=== PATIENT | female | born 1955 | race Caucasian/White ===

== ENCOUNTER 2017-04-24 18:54 | Inpatient (IN) | payer OTHER ==
[~2017-04-24] VITALS: Ht 170.2 cm; Wt 55.4 kg
[~2017-04-24 18:54] MED LIST: ALBU18HF INH; ASPI-496 PO; BACL-19 PO; BENZ1TAB61 PO; CARB15DR EACHEYE; CARV-39 PO; CEFD300C37 PO; CITA40TA12 PO; CLON0.2T PO; CYAN1TAB39 PO; DIAZ2TAB3 PO; ERGO500017 PO; FENO145T13 PO; FERR140T2 PO; FERR325T20 PO; FLUO40CA2 PO; HYDR-3138 PO; HYDR-3144 PO; LAMO100T PO; LEVO50TA5 PO; LEVO750T26 PO; LISI40TA PO; LORA10TA3 PO; LOSA1TAB17 PO; LOVA40TA2 PO; MELA3TAB PO; MELA3TAB37 PO; METF850T2 PO; NEOM14.27 TP; PANT40TA5 PO; PROC5TAB40 PO; RISP3TAB3 PO; SILV400C TP; TRIA10.8 INH; VENL150C PO; VENL75CA PO
[2017-04-24 19:26] LABS: HEMATOCRIT 32.4 % (34.6-47.8); HEMOGLOBIN 10.9 g/dL (11.7-16.4); WHITE BLOOD COUNT 16.5 x10^3/uL (3.4-10)
[2017-04-24] MEDS ORDERED: AZITHROMYCIN 500 MG in SODIUM CHLORIDE 0.9% 250 ML IVPB ONE (19:30)
[2017-04-24] MEDS ORDERED: ASPIRIN 81 MG TABLET CHEW PO ONE (19:30)
[2017-04-24] MEDS ORDERED: SODIUM CHLORIDE 0.9% 1,000ML IVBOLUS ONE (19:30)
[2017-04-24] MEDS ORDERED: CEFTRIAXONE PMX 1GM/50ML 50 ML IVPB ONE (19:30)
[2017-04-24 19:36] LABS: BLOOD UREA NITROGEN 12 mg/dL (7-18)
[2017-04-24 19:43] LABS: IS PT STATUS REG ER OR PRE ER? YES
[2017-04-24] MEDS ORDERED: CETI10TA18 PO (19:54)
[2017-04-24] MEDS ORDERED: LEVO75TA5 PO (19:54)
[2017-04-24] MEDS ORDERED: RISP3TAB3 PO (19:54)
[2017-04-24] MEDS ORDERED: CEFTRIAXONE PMX 1GM/50ML 50 ML ONE (20:10)
[2017-04-24] MEDS ORDERED: SODIUM CHLORIDE 0.9% 1,000 ML IV ONE (20:30)
[2017-04-24] MEDS ORDERED: FLUTICASONE NASAL SPRAY 16GM NAS SCH (20:30)
[2017-04-24] MEDS ORDERED: HYDROcodone/APAP 10/325 MG TABLET PO PRN (20:30)
[2017-04-24] MEDS ORDERED: SODIUM CHLORIDE 0.9% 1,000 ML IV SCH (20:35)
[2017-04-24] MEDS ORDERED: hydrALAzine 20 MG/ML, 1ML IVPush PRN (21:00)
[2017-04-24] MEDS ORDERED: BISACODYL 10 MG SUPP PR PRN (21:00)
[2017-04-24] MEDS: TEMPLATE NON-FORMULARY MED. (Carboxymethylcellulose Sodium (Refresh Tears) 1 DROP) EACHEYE SCH (21:00)
[2017-04-24] MEDS ORDERED: ONDANSETRON ODT 4 MG PO PRN (21:00)
[2017-04-24] MEDS ORDERED: RISPERIDONE 1 MG TABLET PO SCH (21:00)
[2017-04-24] MEDS ORDERED: ENOXAPARIN 40 MG/0.4 ML SQ SCH (21:00)
[2017-04-24] MEDS ORDERED: CEFTRIAXONE PMX 1GM/50ML 50 ML IV SCH (21:00)
[2017-04-24] MEDS ORDERED: GUAIFENESIN/DM 200-20MG, 10ML UDC PO PRN (21:00)
[2017-04-24] MEDS ORDERED: MELATONIN 3 MG TABLET PO SCH (21:00)
[2017-04-24] MEDS ORDERED: POLYETHYLENE GLYCOL 17 GM PACKET PO PRN (21:00)
[2017-04-24] MEDS ORDERED: DOCUSATE 100 MG CAPSULE PO PRN (21:00)
[2017-04-24] MEDS ORDERED: ACETAMINOPHEN 325 MG TABLET PO PRN (21:00)
[2017-04-24] MEDS ORDERED: LOVASTATIN 40 MG TABLET PO SCH (21:00)
[2017-04-24] MEDS ORDERED: GLUCAGON 1 MG IM PRN (21:30)
[2017-04-24] MEDS ORDERED: DEXTROSE 4 GM TAB.CHEW PO PRN (21:30)
[2017-04-24] MEDS ORDERED: DEXTROSE 50%, 50ML SYRINGE IVPush PRN (21:30)
[2017-04-24 22:24] VITALS: BP 188/92
[2017-04-24] MEDS: LAMOTRIGINE 100 MG TABLET PO SCH (22:35)
[2017-04-24] MEDS: BENZTROPINE 1 MG TABLET PO SCH (22:36)
[2017-04-24] MEDS: PANTOPROZOLE 40MG TABLET PO SCH (22:37)
[2017-04-24] MEDS: CARVEDILOL 25 MG TABLET PO SCH (22:37)
[2017-04-24] MEDS ORDERED: ALBUTEROL SULFATE 2.5 MG/3 ML NPPB PRN (23:00)
[2017-04-25 02:00] VITALS: BP 159/83
[2017-04-25 05:40] LABS: HEMOGLOBIN 10.6 g/dL (11.7-16.4); WHITE BLOOD COUNT 14.7 x10^3/uL (3.4-10)
[2017-04-25 06:05] LABS: BLOOD UREA NITROGEN 8 mg/dL (7-18)
[2017-04-25] MEDS: INSULIN ASPART 100 UNITS/ML, PEN SQ-INSULIN SCH ×3 (07:00→17:05)
[2017-04-25 07:16] VITALS: BP 194/79
[2017-04-25] MEDS ORDERED: metFORMIN 850 MG TABLET PO SCH (08:00)
[2017-04-25 08:49] VITALS: BP 160/79
[2017-04-25] MEDS: CARVEDILOL 25 MG TABLET PO SCH (08:53)
[2017-04-25] MEDS: BENZTROPINE 1 MG TABLET PO SCH (08:55)
[2017-04-25] MEDS: LAMOTRIGINE 100 MG TABLET PO SCH (08:56)
[2017-04-25] MEDS ORDERED: LEVOTHYROXINE 75 MCG TABLET PO SCH (09:00)
[2017-04-25] MEDS ORDERED: [UNRECOGNIZED DRUG - OTHER] PO SCH (09:00)
[2017-04-25] MEDS ORDERED: SODIUM CHLORIDE FLUSH 10ML SYR IVF SCH (09:00)
[2017-04-25] MEDS ORDERED: CETIRIZINE 10 MG TABLET PO SCH (09:00)
[2017-04-25] MEDS ORDERED: RISPERIDONE 1 MG TABLET PO SCH (09:00)
[2017-04-25] MEDS ORDERED: FOLIC ACID PO SCH (09:00)
[2017-04-25] MEDS ORDERED: FERROUS SULFATE 325 MG TABLET PO SCH (09:00)
[2017-04-25] MEDS ORDERED: FLUOXETINE 20 MG CAPSULE PO SCH (09:00)
[2017-04-25] MEDS: TEMPLATE NON-FORMULARY MED. (Carboxymethylcellulose Sodium (Refresh Tears) 1 DROP) EACHEYE SCH (09:00)
[2017-04-25] MEDS ORDERED: TEMPLATE NON-FORMULARY MED. (Losartan/Hydrochlorothiazide** (Losartan-Hctz 100-25 Mg Tab PO SCH (09:00)
[2017-04-25] MEDS ORDERED: AZITHROMYCIN 250 MG TABLET PO SCH (09:00)
[2017-04-25] MEDS ORDERED: CYANOCOBALAMIN PO SCH (09:00)
[2017-04-25] MEDS ORDERED: ERGOCALCIFEROL 50,000 UNIT CAPSULE PO SCH (09:00)
[2017-04-25] MEDS: PANTOPROZOLE 40MG TABLET PO SCH (09:05)
[2017-04-25] MEDS ORDERED: OMNIPAQUE 350 MG/ML, 75ML BOTTLE ONE (12:28)
[2017-04-25 14:20] VITALS: BP 151/78
== END 2017-04-25 19:04 | disposition home or self-care (01) | DRG 190 ==
LOC: ED 20:00 → EDIP 20:08 → ED 20:37 → 4WST 21:30
PROVIDERS: ADMIT Family Medicine; ATTEND Family Medicine
DX: J44.0 Chronic obstructive pulmonary disease with (acute) lower respiratory infection (principal); J15.9 Unspecified bacterial pneumonia; J84.10 Pulmonary fibrosis, unspecified; E87.1 Hypo-osmolality and hyponatremia; F20.0 Paranoid schizophrenia; I10 Essential (primary) hypertension; E03.9 Hypothyroidism, unspecified; E11.9 Type 2 diabetes mellitus without complications; E78.5 Hyperlipidemia, unspecified; F41.1 Generalized anxiety disorder; G89.29 Other chronic pain; K21.9 Gastro-esophageal reflux disease without esophagitis; R09.02 Hypoxemia; F41.9 Anxiety disorder, unspecified; Z72.0 Tobacco use; Z80.3 Family history of malignant neoplasm of breast; Z86.73 Personal history of transient ischemic attack (TIA), and cerebral infarction without residual deficits; Z90.49 Acquired absence of other specified parts of digestive tract; Z90.710 Acquired absence of both cervix and uterus; Z88.8 Allergy status to other drugs, medicaments and biological substances; Z88.0 Allergy status to penicillin; Z86.711 Personal history of pulmonary embolism; Z99.81 Dependence on supplemental oxygen; Z86.718 Personal history of other venous thrombosis and embolism; Z79.01 Long term (current) use of anticoagulants; Z88.6 Allergy status to analgesic agent; Z88.1 Allergy status to other antibiotic agents
CPT/HCPCS: 36415; 71010; 71260; 80048; 82040; 82962; 83605; 84145; 84484; 85025; 87040; 93005; 96365; 96367; J0456; J0696; J1650; J1815; Q9967; J7030; J7050

== ENCOUNTER 2017-08-07 07:57 | Inpatient (IN) | payer OTHER ==
[~2017-08-07] VITALS: Ht 170.2 cm; Wt 54.3 kg
[~2017-08-07 07:57] MED LIST changes: +CETI10TA18 PO; +FERR325T18 PO; -FERR325T20 PO; -HYDR-3138 PO; -HYDR-3144 PO; +HYDR-3237 PO; +HYDR-3245 PO; +LEVO75TA5 PO; -LOSA1TAB17 PO; +LOSA1TAB22 PO; -MELA3TAB PO; +MELA3TAB2 PO; -MELA3TAB37 PO; +MELA3TAB62 PO
[2017-08-07] MEDS ORDERED: SODIUM CHLORIDE 0.9% 1,000 ML IV ONE ×2 (08:27→09:50)
[2017-08-07] MEDS ORDERED: SODIUM CHLORIDE FLUSH 10ML SYR IVF ONE (08:30)
[2017-08-07] MEDS ORDERED: AZITHROMYCIN 500 MG in SODIUM CHLORIDE 0.9% 250 ML IVPB ONE (09:00)
[2017-08-07] MEDS ORDERED: CEFTRIAXONE PMX 1GM/50ML 50 ML IVPB ONE (09:00)
[2017-08-07 09:01] LABS: RAPID INFLUENZA A Negative (Negative); RAPID INFLUENZA B Negative (Negative)
[2017-08-07 09:16] LABS: HEMATOCRIT 36.6 % (34.6-47.8); HEMOGLOBIN 12.7 g/dL (11.7-16.4); WHITE BLOOD COUNT 11.6 x10^3/uL (3.4-10)
[2017-08-07] MEDS ORDERED: CEFTRIAXONE PMX 1GM/50ML 50 ML ONE (09:20)
[2017-08-07 09:27] LABS: ASPARTATE AMINO TRANSFERASE 7 U/L (15-37); BLOOD UREA NITROGEN 9 mg/dL (7-18)
[2017-08-07 09:32] LABS: IS PT STATUS REG ER OR PRE ER? YES
[2017-08-07] MEDS ORDERED: SODIUM CHLORIDE FLUSH 10ML SYR IVF PRN (10:00)
[2017-08-07] MEDS ORDERED: LOSA100T6 PO (10:32)
[2017-08-07] MEDS ORDERED: OXYC18CA PO (10:32)
[2017-08-07] MEDS ORDERED: ATOR40TA78 PO (10:32)
[2017-08-07] MEDS ORDERED: CARV25TA12 PO (10:32)
[2017-08-07] MEDS ORDERED: PROC5TAB40 PO (10:32)
[2017-08-07] MEDS ORDERED: PANT40TA3 PO (10:32)
[2017-08-07] MEDS ORDERED: [UNRECOGNIZED DRUG - CODE] PO (10:32)
[2017-08-07] MEDS ORDERED: AMLO10TA2 PO (10:32)
[2017-08-07] MEDS ORDERED: HYDR-3341 PO (10:32)
[2017-08-07] MEDS ORDERED: FERR325T18 PO (10:32)
[2017-08-07] MEDS ORDERED: RISP1TAB3 PO (10:32)
[2017-08-07] MEDS ORDERED: TRAM50TA2 PO (10:32)
[2017-08-07] MEDS ORDERED: CRAN250C PO (10:32)
[2017-08-07] MEDS ORDERED: CYAN250013 PO (10:32)
[2017-08-07] MEDS ORDERED: ACETAMINOPHEN 325 MG TABLET PO PRN (11:00)
[2017-08-07] MEDS ORDERED: ONDANSETRON 2MG/ML, 2ML IVPush PRN (11:00)
[2017-08-07] MEDS ORDERED: ONDANSETRON ODT 4 MG PO PRN (11:00)
[2017-08-07 11:16] VITALS: BP 133/76
[2017-08-07] MEDS: INSULIN ASPART 100 UNITS/ML, PEN SQ-INSULIN SCH ×3 (13:00→20:48)
[2017-08-07] MEDS: CEFTRIAXONE PMX 1GM/50ML 50 ML IV SCH (13:22)
[2017-08-07] MEDS: SODIUM CHLORIDE 0.9% 1,000 ML IV SCH ×2 (13:22→20:47)
[2017-08-07] MEDS: HEPARIN 5,000 UNITS/ML, 1ML SQ SCH ×2 (13:22→20:35)
[2017-08-07 13:53] VITALS: BP 139/75
[2017-08-07] MEDS: ATORVASTATIN 80 MG TABLET PO SCH (20:35)
[2017-08-07] MEDS: CARVEDILOL 25 MG TABLET PO SCH (20:36)
[2017-08-07] MEDS: RISPERIDONE 1 MG TABLET PO SCH (20:36)
[2017-08-07] MEDS: OxyconTIN ER 20 MG TAB.ER PO SCH (20:36)
[2017-08-07] MEDS: LAMOTRIGINE 100 MG TABLET PO SCH (20:37)
[2017-08-07 20:42] VITALS: BP 180/82
[2017-08-08 01:55] VITALS: BP 136/76
[2017-08-08] MEDS: HEPARIN 5,000 UNITS/ML, 1ML SQ SCH ×3 (04:08→21:03)
[2017-08-08 05:07] LABS: HEMATOCRIT 31.2 % (34.6-47.8); HEMOGLOBIN 10.8 g/dL (11.7-16.4); WHITE BLOOD COUNT 8.2 x10^3/uL (3.4-10)
[2017-08-08 05:19] LABS: BLOOD UREA NITROGEN 10 mg/dL (7-18)
[2017-08-08] MEDS: LEVOTHYROXINE 75 MCG TABLET PO SCH (06:02)
[2017-08-08 07:24] VITALS: BP 160/76
[2017-08-08] MEDS: INSULIN ASPART 100 UNITS/ML, PEN SQ-INSULIN SCH ×4 (08:41→21:21)
[2017-08-08] MEDS: OxyconTIN ER 20 MG TAB.ER PO SCH ×2 (08:49→21:03)
[2017-08-08] MEDS: FERROUS SULFATE 325 MG TABLET PO SCH (08:49)
[2017-08-08] MEDS: AMLODIPINE 5 MG TABLET PO SCH (08:50)
[2017-08-08] MEDS: PANTOPROZOLE 40MG TABLET PO SCH (08:50)
[2017-08-08] MEDS: LOSARTAN 50MG TABLET PO SCH (08:51)
[2017-08-08] MEDS: CARVEDILOL 25 MG TABLET PO SCH ×2 (08:51→21:03)
[2017-08-08] MEDS: LAMOTRIGINE 100 MG TABLET PO SCH ×2 (08:52→21:03)
[2017-08-08] MEDS: SODIUM CHLORIDE 0.9% 1,000 ML IV SCH (08:57)
[2017-08-08] MEDS: AZITHROMYCIN 500 MG in SODIUM CHLORIDE 0.9% 250 ML IV SCH (10:47)
[2017-08-08] MEDS: CEFTRIAXONE PMX 1GM/50ML 50 ML IV SCH (12:12)
[2017-08-08 13:50] VITALS: BP 115/67
[2017-08-08 16:05] VITALS: BP 150/80
[2017-08-08 19:22] VITALS: BP 154/80
[2017-08-08] MEDS: RISPERIDONE 1 MG TABLET PO SCH (21:03)
[2017-08-08] MEDS: ATORVASTATIN 80 MG TABLET PO SCH (21:03)
[2017-08-09 01:26] VITALS: BP 161/79
[2017-08-09] MEDS: HEPARIN 5,000 UNITS/ML, 1ML SQ SCH ×2 (03:35→11:37)
[2017-08-09] MEDS: LEVOTHYROXINE 75 MCG TABLET PO SCH (06:37)
[2017-08-09 08:21] VITALS: BP 185/90
[2017-08-09] MEDS: INSULIN ASPART 100 UNITS/ML, PEN SQ-INSULIN SCH ×2 (08:21→11:37)
[2017-08-09] MEDS ORDERED: CEFD300C37 PO ×2 (08:37→15:55)
[2017-08-09] MEDS ORDERED: GUAI12009 PO (08:37)
[2017-08-09] MEDS ORDERED: DOXY100T9 PO (08:37)
[2017-08-09] MEDS: CARVEDILOL 25 MG TABLET PO SCH (09:33)
[2017-08-09] MEDS: AMLODIPINE 5 MG TABLET PO SCH (09:33)
[2017-08-09] MEDS: LOSARTAN 50MG TABLET PO SCH (09:34)
[2017-08-09] MEDS: LAMOTRIGINE 100 MG TABLET PO SCH (09:35)
[2017-08-09] MEDS: OxyconTIN ER 20 MG TAB.ER PO SCH (09:35)
[2017-08-09] MEDS: PANTOPROZOLE 40MG TABLET PO SCH (09:36)
[2017-08-09] MEDS: FERROUS SULFATE 325 MG TABLET PO SCH (09:38)
[2017-08-09] MEDS: AZITHROMYCIN 500 MG in SODIUM CHLORIDE 0.9% 250 ML IV SCH (09:38)
[2017-08-09] MEDS ORDERED: PNEUMOCOCCAL 23 VACCINE IM-VACC ONE (11:00)
[2017-08-09] MEDS: CEFTRIAXONE PMX 1GM/50ML 50 ML IV SCH (11:36)
[2017-08-09 13:00] VITALS: BP 152/82
[2017-08-09] MEDS ORDERED: [UNRECOGNIZED DRUG - CODE] PO (15:54)
[2017-08-09] MEDS ORDERED: DOXY100T PO (15:54)
== END 2017-08-09 13:45 | disposition home or self-care (01) | DRG 190 ==
LOC: ED 09:49 → EDIP 09:50 → ED 10:02 → 4NOR 11:01
PROVIDERS: ADMIT Family Medicine; ATTEND Family Medicine
DX: J44.0 Chronic obstructive pulmonary disease with (acute) lower respiratory infection (principal); J15.9 Unspecified bacterial pneumonia; E87.1 Hypo-osmolality and hyponatremia; E11.65 Type 2 diabetes mellitus with hyperglycemia; F20.0 Paranoid schizophrenia; J44.1 Chronic obstructive pulmonary disease with (acute) exacerbation; M19.90 Unspecified osteoarthritis, unspecified site; M54.2 Cervicalgia; M54.9 Dorsalgia, unspecified; G89.29 Other chronic pain; E03.9 Hypothyroidism, unspecified; F41.1 Generalized anxiety disorder; I10 Essential (primary) hypertension; K21.9 Gastro-esophageal reflux disease without esophagitis; Z23 Encounter for immunization; Z79.4 Long term (current) use of insulin; Z80.9 Family history of malignant neoplasm, unspecified; Z86.711 Personal history of pulmonary embolism; Z86.73 Personal history of transient ischemic attack (TIA), and cerebral infarction without residual deficits; Z87.891 Personal history of nicotine dependence; Z88.6 Allergy status to analgesic agent; Z88.8 Allergy status to other drugs, medicaments and biological substances
CPT/HCPCS: 36415; 71020; 80048; 80053; 82962; 83036; 83605; 83880; 84484; 85025; 85610; 85730; 87040; 87400; 90732; 93005; 96365; 96367; J0456; J0696; J1644; J1815; J7030; J7050

== ENCOUNTER 2017-08-29 07:46 | Emergency (ER) | payer OTHER ==
[~2017-08-29] VITALS: Ht 170.2 cm; Wt 54.5 kg
[~2017-08-29 07:46] MED LIST changes: +AMLO10TA2 PO; +ATOR40TA78 PO; +CARV25TA12 PO; +CRAN250C PO; +CYAN250013 PO; +DOXY100T PO; +DOXY100T9 PO; +GUAI12009 PO; +HYDR-3341 PO; +LOSA100T6 PO; +OXYC18CA PO; +PANT40TA3 PO; +RISP1TAB3 PO; +TRAM50TA2 PO; +[UNRECOGNIZED DRUG - CODE] PO; +[UNRECOGNIZED DRUG - CODE] PO
[2017-08-29 08:17] LABS: HEMATOCRIT 42.4 % (34.6-47.8); HEMOGLOBIN 14.6 g/dL (11.7-16.4); WHITE BLOOD COUNT 10.8 x10^3/uL (3.4-10)
[2017-08-29 08:28] LABS: ASPARTATE AMINO TRANSFERASE 6 U/L (15-37); BLOOD UREA NITROGEN 13 mg/dL (7-18)
[2017-08-29] MEDS ORDERED: SODIUM CHLORIDE 0.9% 1,000ML IVBOLUS ONE (08:30)
[2017-08-29] MEDS ORDERED: ONDANSETRON 2MG/ML, 2ML IVPush ONE (08:30)
[2017-08-29 09:21] VITALS: BP 159/80
== END 2017-08-29 10:00 | disposition home or self-care (01) ==
LOC: ED 09:56
DX: K59.00 Constipation, unspecified (principal); E03.9 Hypothyroidism, unspecified; K21.9 Gastro-esophageal reflux disease without esophagitis; J44.9 Chronic obstructive pulmonary disease, unspecified; M19.90 Unspecified osteoarthritis, unspecified site; E11.9 Type 2 diabetes mellitus without complications; I10 Essential (primary) hypertension; G89.29 Other chronic pain; M54.9 Dorsalgia, unspecified; F20.0 Paranoid schizophrenia; Z87.891 Personal history of nicotine dependence; Z90.49 Acquired absence of other specified parts of digestive tract
CPT/HCPCS: 36415; 74020; 80053; 81003; 85025; 99285

== ENCOUNTER 2017-12-25 10:57 | Emergency (ER) | payer OTHER ==
[~2017-12-25] VITALS: Ht 170.2 cm; Wt 71.4 kg
[2017-12-25] MEDS ORDERED: SODIUM CHLORIDE FLUSH 10ML SYR IVF ONE (12:00)
[2017-12-25 12:15] LABS: BASOPHILS # (AUTO) 0.02 x10^3/uL (0-0.1); BASOPHILS % (AUTO) 0 % (0-1); EOSINOPHILS # (AUTO) 0.43 x10^3/uL (0-0.4); EOSINOPHILS % (AUTO) 6 % (1-7); LYMPHOCYTES # (AUTO) 1.24 x10^3/uL (1-3.4); LYMPHOCYTES % (AUTO) 16 % (22-44); MD NO; MEAN CORPUSCULAR HEMOGLOBIN 31.4 pg (27.0-34.8); MEAN CORPUSCULAR HGB CONC 33.6 g/dL (32.4-35.8); MEAN CORPUSCULAR VOLUME 93.5 fL (80-100); MEAN PLATELET VOLUME 7.7 fL (7.4-10.4); MONOCYTES # (AUTO) 0.65 x10^3/uL (0.2-0.8); MONOCYTES % (AUTO) 9 % (2-9); NEUTROPHILS # (AUTO) 5.34 x10^3/uL (1.8-6.8); NEUTROPHILS % (AUTO) 70 % (42-75); PLATELET COUNT 247 x10^3/uL (130-400); RED BLOOD COUNT 3.92 x10^6/uL (3.82-5.3); RED CELL DISTRIBUTION WIDTH 13.8 % (9.6-15.2)
[2017-12-25 12:25] LABS: ALBUMIN 3.9 g/dL (3.4-5.0); ANION GAP 8 mmol/L (5-15); CALCIUM 8.9 mg/dL (8.5-10.1); CHLORIDE 97 mmol/L (98-107); CREATININE 0.95 mg/dL (0.55-1.02)
[2017-12-25] MEDS ORDERED: FUROSEMIDE 20 MG TABLET PO ONE (13:30)
[2017-12-25] MEDS ORDERED: FUROSEMIDE 20 MG TABLET ONE (13:51)
[2017-12-25 13:55] VITALS: BP 155/72
== END 2017-12-25 14:59 | disposition home or self-care (01) ==
LOC: ED 12:20
DX: R60.0 Localized edema (principal); E03.9 Hypothyroidism, unspecified; E11.9 Type 2 diabetes mellitus without complications; J44.9 Chronic obstructive pulmonary disease, unspecified; M19.90 Unspecified osteoarthritis, unspecified site
CPT/HCPCS: 36415; 71046; 80048; 82040; 83880; 85025; 93970; 99285